=== PATIENT | female | born 1990 | race Caucasian/White ===

== ENCOUNTER 2025-01-01 14:53 | Outpatient (CLI) | payer OTHER, SELFPAY ==
--- NOTE | ~2025-01-01 | US_ITS ---
Thyroid ultrasound. Clinical History: Euthyroid with thyroid antibodies Findings: Real-time sonography of the thyroid gland was performed. The right lobe measures 4.2 x 1.6 x 1.7 cm. The left lobe measures 3.6 x 1.2 x 1.1 cm. The isthmus is 1.3 mm in AP diameter. There is a 10 x 6 x 9 mm isoechoic nodule at the central aspect of the right thyroid lobe with a poss ible hypoechoic capsule or margin. Impression: 10 mm TI-RADS 3 nodule in the right thyroid lobe, as above.. Reviewed, dictated and finalized at location . Impression: 10 mm TI-RADS 3 nodule in the right thyroid lobe, as above..
== END 2025-01-01 14:54 | disposition home or self-care (01) ==
LOC: GOSHIMG 14:54
PROVIDERS: PCP Physician Assistant; Visit Provider Physician Assistant
DX: E07.81 Sick-euthyroid syndrome (principal)
CPT/HCPCS: 76536